=== PATIENT | female | born 1990 | race Two or more races ===

== ENCOUNTER 2017-11-26 05:51 | Day surgery (SDC) | payer BC ==
[2017-11-26] MEDS ORDERED: ANESTHESIA TRAY IN PYXIS 1 EA TRAY MC ONE (06:48)
[2017-11-26] MEDS ORDERED: FENTANYL PF 100MCG/2ML AMPUL ONE ×2 (07:55)
[2017-11-26] MEDS ORDERED: MIDAZOLAM HCL 2 MG/2ML VIAL ONE (07:55)
[2017-11-26] MEDS ORDERED: BUPIVACAINE 0.25% 75 MG/30 ML VIAL ONE (08:41)
[2017-11-26] MEDS ORDERED: LIDOCAINE 1%-EPI 1:100,000 20 ML VIAL ONE (08:41)
== END 2017-11-26 11:10 | disposition home or self-care (01) ==
LOC: DS 05:51
PROVIDERS: ATTEND Surgery
DX: K42.9 Umbilical hernia without obstruction or gangrene (principal); E66.9 Obesity, unspecified; Z68.25 Body mass index [BMI] 25.0-25.9, adult; Z91.09 Other allergy status, other than to drugs and biological substances; Z83.3 Family history of diabetes mellitus
CPT/HCPCS: 84703-TC; 88302-TC; 88305-TC; A6209; A6402; J0690; J1100; J1885; J2250; J2405; J2710; J3010; J3490